=== PATIENT | female | born 1995 | race Caucasian/White ===

== ENCOUNTER 2016-05-20 08:40 | Emergency (ER) | payer BC ==
[~2016-05-20] VITALS: Ht 172.7 cm; Wt 72.7 kg
[2016-05-20 11:25] LABS: CHLAMYDIA/TRACH by PCR Female NOT DETECTED; NEISSERIA GON by PCR Female NOT DETECTED
[2016-05-20 11:50] LABS: HIV 1/2 Antibodies Non-Reactive; HIV-1p24 Antigen Non-Reactive
[2016-05-20] MEDS ORDERED: FLAGYL500 MG PO (13:38)
[2016-05-20 13:40] VITALS: BP 132/60; PULSE 88; TEMP 98.4
== END 2016-05-20 14:15 | disposition home or self-care (01) ==
LOC: COL.ER 08:40
PROVIDERS: Emergency Medicine
DX: Z04.41 Encounter for examination and observation following alleged adult rape (principal)
CPT/HCPCS: J0696

== ENCOUNTER → 2016-05-20 | Outpatient (REF) ==
[~2016-05-20] MED LIST: FLAGYL500 MG PO
== END ==
LOC: COL.ER 08:57
DX: T76.21XA Adult sexual abuse, suspected, initial encounter (principal)